=== PATIENT | female | born 1960 | race American Indian/Alaskan Native ===

== ENCOUNTER 2020-07-09 15:30 | Emergency (ER) | payer SELFPAY ==
[2020-07-09 16:00] VITALS: BP 155/80
--- NOTE | 2020-07-09 16:02 | Event Note ---
ED Screening Note ED Screening Note: cough low grade fever This initial assessment/diagnostic orders/clinical plan/treatment(s) is/are subject to change based on patients health status, clinical progression and re- assessment by fellow clinical providers in the ED. Further treatment and workup at subsequent clinical providers discretion. Patient/guardian urged not to elope from the ED as their condition may be serious if not clinically assessed and managed. Initial orders include: xray
--- NOTE | 2020-07-09 17:01 | XRay Report ---
CHEST PA AND LATERAL VIEWS INDICATION: cough. COMPARISON: None. FINDINGS: Support devices: None. Heart: Within normal limits. Lungs/Pleura: No consolidation, effusion, or pneumothorax. IMPRESSION: 1. No acute findings. Signer Name: Ruben Dillard MD Signed: 07/09/2020 4:56 PM Workstation Name: [id number]
--- NOTE | 2020-07-09 20:41 | Emergency Department Report ---
ED Fever HPI - General Chief Complaint: Headache Stated Complaint: ALERGYS/ DRY COUGH PUI?: Yes Time Seen by Provider: 07/09/20 20:31 Source: patient, RN notes reviewed Exam Limitations: no limitations - History of Present Illness Initial Comments: Patient is a 60-year-old female who presents emergency room with complaints of fever, dry cough, sinus pressure, sinus congestion, headache. Patient states her symptoms started yesterday. Patient states she checked her fever today and was 101.3. Patient states she took her temperature orally. Patient states she is here visiting to help her sister moved from [place] to [place]. Patient states she flew in yesterday. Patient states she had a lot of dust exposure during the move. Patient states she is feels like it could be her allergies but she is not sure why she had a fever. Patient states her cough is nonproductive. Patient states her symptoms started yesterday. Patient denies chest pain. Patient denies shortness of breath. Patient denies recent international travel. Patient denies exposure to the novel coronavirus. Patient denies sick contacts. Patient denies loss of taste and smell. Patient denies nausea and vomiting. Patient denies diarrhea. Patient denies coming in contact with anybody with symptoms of the novel coronavirus. Timing/Duration: yesterday Fever Severity/Quality: greater than 100.5 F Fever Therapy [employer]: Ibuprofen Associated Symptoms: cough, headache. denies: diaphoresis, muscle aches, nausea/vomiting, rash, shortness of breath, sore throat, stiff neck, syncope, weakness ED Review of Systems ROS: Stated complaint: ALERGYS/ DRY COUGH Other details as noted in HPI Constitutional: fever. denies: chills, diaphoresis, malaise, weakness Eyes: denies: eye pain, eye discharge, vision change ENT: as per HPI. denies: ear pain, throat pain Respiratory: see HPI, cough. denies: shortness of breath, SOB with exertion, SOB at rest, wheezing Cardiovascular: denies: chest pain, palpitations Endocrine: no symptoms reported Gastrointestinal: denies: abdominal pain, nausea, diarrhea Genitourinary: denies: urgency, dysuria, discharge Musculoskeletal: denies: back pain, joint swelling, arthralgia Skin: denies: rash, lesions Neurological: denies: headache, weakness, paresthesias Psychiatric: denies: anxiety, depression Hematological/Lymphatic: denies: easy bleeding, easy bruising ED Past Medical Hx - Past Medical History Previous Medical History?: No - Surgical History Past Surgical History?: No - Family History Family history: no significant - Social History Smoking Status: Never Smoker Substance Use Type: None - Medications Home Medications: Home Medications Medication Instructions Recorded Confirmed Last Taken Type Azithromycin [Zithromax TAB] 500 mg PO QDAY 5 Days #5 tablet 07/09/20 Unknown Rx methylPREDNISolone [Medrol 4MG 4 mg PO DAILY 6 Days #1 tab.ds.pk 07/09/20 Unknown Rx DOSEPAK (21 tabs)] ED Physical Exam - General Limitations: No Limitations General appearance: alert, in no apparent distress - Head Head exam: Present: atraumatic, normocephalic - Eye Eye exam: Present: normal appearance, PERRL Pupils: Present: normal accommodation - ENT ENT exam: Present: mucous membranes moist, other (Bilateral maxillary and frontal sinus tenderness to palpation. Enlarged nasal turbinates with purulent discharge.) - Neck Neck exam: Present: normal inspection - Respiratory Respiratory exam: Present: normal lung sounds bilaterally. Absent: respiratory distress, wheezes, rales - Cardiovascular Cardiovascular Exam: Present: regular rate, normal rhythm. Absent: systolic murmur, diastolic murmur, rubs, gallop - GI/Abdominal GI/Abdominal exam: Present: soft, normal bowel sounds. Absent: distended, tenderness, guarding - Extremities Exam Extremities exam: Present: normal inspection - Back Exam Back exam: Present: normal inspection - Neurological Exam Neurological exam: Present: alert, oriented X3 - Psychiatric Psychiatric exam: Present: normal affect, normal mood - Skin Skin exam: Present: warm, dry, intact, normal color. Absent: rash ED Course Vital Signs 07/09/20 15:59 Temperature 99.7 F H Pulse Rate 94 H Respiratory 20 Rate Blood Pressure 155/80 O2 Sat by Pulse 98 Oximetry - Reevaluation(s) Reevaluation #1: I discussed all results and clinical findings with patient. I discussed plan of care with patient. Patient agrees with plan of care. Patient is stable for discharge. Patient will be discharged home. Patient given discharge instructions. Patient voiced understanding of discharge instructions. 07/09/20 20:40 ED Medical Decision Making - Radiology Data Radiology results: report reviewed, image reviewed interpreted by me: Chest x-ray: No pneumonia, no pneumothorax, no foreign body, no osseous findings, no acute findings CHEST PA AND LATERAL VIEWS INDICATION: cough. COMPARISON: None. FINDINGS: Support devices: None. Heart: Within normal limits. Lungs/Pleura: No consolidation, effusion, or pneumothorax. IMPRESSION: 1. No acute findings. - Medical Decision Making Patient is a 60-year-old female that presents emergency room with complaints of fever, dry cough,, sinus congestion, nasal congestion. Patient clinical exam is consistent with acute sinusitis. Patient complained of cough and had a chest x- ray done. Patient chest x-ray is negative for acute findings. Patient does not require further evaluation or treatment in the ER. Patient can be followed as an outpatient. Patient was given outpatient resources. Patient will be treated for a sinus infection with antibiotics and steroids. Patient given discharge instruction. Patient voiced understanding of discharge instructions. - Differential Diagnosis Covid, URI, sinusitis, pneumonia, cough, fever, Critical care attestation.: If time is entered above; I have spent that time in minutes in the direct care of this critically ill patient, excluding procedure time. ED Disposition Clinical Impression: Cough Sinusitis Qualifiers: Sinusitis location: frontal Chronicity: acute Recurrence: non-recurrent Qualified Code(s): J01.10 - Acute frontal sinusitis, unspecified Fever Qualifiers: Fever type: unspecified Qualified Code(s): R50.9 - Fever, unspecified Disposition: DC-01 TO HOME OR SELFCARE Is pt being admited?: No Does the pt Need Aspirin: No Condition: Stable Instructions: Cough, Adult, [id number], Fever, Adult, Upper Respiratory Infection, Adult, [id number], Sinusitis, Adult, [id number], Sinus Headache Additional Instructions: Patient to follow-up with primary care in 2 to 3 days. Patient to follow-up with health department and outpatient Covid testing in 2 to 3 days. Patient to self quarantine for 10 to 14 days. Patient to abide by the CDC established Covid guidelines. Patient to continue to to use masks. Patient to rest. Patient to increase water. Patient to take Tylenol or ibuprofen as needed for pain. Patient to take meds as directed. Patient to return to the ER if condition worsens, changes or new symptoms arise. Prescriptions: methylPREDNISolone [Medrol 4MG DOSEPAK (21 tabs)] 4 mg PO DAILY 6 Days #1 tab.ds.pk Azithromycin [Zithromax TAB] 500 mg PO QDAY 5 Days #5 tablet Referrals: ALCON PHAN MD [Staff Physician] - 3-5 Days Time of Disposition: 20:48
== END 2020-07-09 21:02 | disposition home or self-care (01) ==
LOC: ED 15:30
DX: J32.9 Chronic sinusitis, unspecified (principal); R51.9 Headache, unspecified; Z79.899 Other long term (current) drug therapy; Z88.0 Allergy status to penicillin
CPT/HCPCS: 71046; 99283